=== PATIENT | male | born 1995 | race Caucasian/White ===

== ENCOUNTER 2018-06-02 21:13 | Emergency (ER) | payer OTHER | END 2018-06-02 23:38 | disposition other institution (70) | LOC: ED 21:13 | DX: Z02.89 Encounter for other administrative examinations (principal) ==

== ENCOUNTER 2018-06-02 21:13 | Emergency (ER) | payer SELFPAY ==
[~2018-06-02] VITALS: Ht 167.6 cm; Wt 59.0 kg
[2018-06-02 21:36] VITALS: Ht 167.6 cm; Wt 59.0 kg
[2018-06-02 23:38] VITALS: BP 114/65
== END 2018-06-02 23:38 | disposition other institution (70) ==
LOC: ED 21:13
DX: M25.512 Pain in left shoulder (principal); M25.551 Pain in right hip; V09.9XXA Pedestrian injured in unspecified transport accident, initial encounter; Y93.02 Activity, running; Y92.89 Other specified places as the place of occurrence of the external cause; Y99.8 Other external cause status
CPT/HCPCS: Q0092